=== PATIENT | female | born 1985 | race Two or more races ===

== ENCOUNTER 2016-04-26 20:36 | Emergency (ER) | payer SELFPAY ==
[2016-04-26 21:35] LABS: ASCORBIC ACID (UR NOT ORDER) NEG (NEG); BILIRUBIN, URINE NEGATIVE (NEG); ER URINALYSIS TAT 0 Hrs 23 Mins; KETONE, URINE NEGATIVE (NEG); LEUKOCYTE ESTERASE(NOT OR NEG (NEG); NITRITE (URINE) NEG (NEG)
[2016-04-26 21:38] LABS: WBC (NOT ORDERED) (RFLEX) 1 (0-5)
[2016-04-27 03:41] LABS: CHLAMYDIA TRACH PCR NOT DETECTED (NOT DETEC); GC PCR NOT DETECTED (NOT DETECT); SOURCE: FEMALE URINE
== END 2016-04-26 21:16 | disposition home or self-care (01) ==
LOC: ER 20:36
PROVIDERS: Nurse Practitioner
DX: N76.0 Acute vaginitis (principal); Z72.51 High risk heterosexual behavior; Z88.2 Allergy status to sulfonamides
CPT/HCPCS: 81001; 84703; 87491; 87591; 96372; 99283; A9270-GY; J0696